=== PATIENT | male | born 1990 | race Two or more races ===

== ENCOUNTER → 2025-03-11 | Outpatient (CLI) | payer BC, SELFPAY ==
--- NOTE | 2025-03-11 08:56 | XR_ITS ---
Examination: PA lateral chest 2 views TECHNIQUE: Upright PA lateral chest 2 views Date and time: March 11, 2025 0903 hours Comparison 04/17/2024 INDICATIONS: Preop back surgery 2 weeks. FINDINGS: Normal heart size. Lungs are clear. The osseous structures are intact IMPRESSION: No active disease.
== END | disposition home or self-care (01) ==
LOC: CDIM 08:46
DX: Z01.818 Encounter for other preprocedural examination (principal)
CPT/HCPCS: 71046